=== PATIENT | male | born 1985 ===

== ENCOUNTER 2021-04-15 13:20 | Emergency (ER) | payer BC ==
[~2021-04-15] VITALS: Ht 177.8 cm; Wt 92.3 kg
[2021-04-15 13:30] VITALS: TEMP 98.1
[2021-04-15 14:14] LABS: COLLECTION METHOD CLEAN CATCH
[2021-04-15 14:29] LABS: MUCOUS Present /lpf; PH 8 (5-8); SQUAMOUS EPITHELIAL None Seen /hpf; URINE APPEARANCE Clear; URINE BACTERIA None Seen /hpf; URINE BILIRUBIN Negative (NEGATIVE); URINE BLOOD Negative (NEGATIVE); URINE COLOR Yellow; URINE GLUCOSE Negative (NEGATIVE); URINE KETONE Negative (NEGATIVE); URINE LEUKOCYTE ESTERASE Negative (NEGATIVE); URINE NITRATE Negative (NEGATIVE); URINE PROTEIN(semi-quant) Negative (NEGATIVE); URINE RBC 0-2 /hpf; URINE UROBILINOGEN Negative (NEGATIVE)
[2021-04-15 14:34] LABS: BASO # 0.1 K/mm3 (0.0-0.2); BASO % 1.2 % (0.0-2.0); EOS # 0.1 K/mm3 (0.0-0.7); EOS % 1.8 % (0-4.0); GRAN # 1.7 K/mm3 (1.4-6.5); GRAN % 33.2 % (42.2-75.2); HEMATOCRIT 43.5 % (42.0-52.0); HEMOGLOBIN 14.4 g/dl (13.5-18.0); LYMPH # 2.9 K/mm3 (1.2-3.4); LYMPH % 56.5 % (20.0-51.0); MEAN CELL VOLUME 89 fl (80.0-100.0); MEAN CORPUSCULAR HEMOGLOBIN 29 pg (27.0-31.0); MEAN CORPUSCULAR HGB CONC 33 g/dl (33.0-37.0); MONO # 0.3 K/mm3 (0.1-0.6); MONO % 6.7 % (1.7-9.3); PLATELET COUNT 210 K/mm3 (130-400); RED BLOOD COUNT 4.91 M/mm3 (4.20-5.60); REDCELL DISTRIBUTION WIDTH-CV 12.6 % (11.5-14.5)
[2021-04-15 14:39] LABS: ALBUMIN 4.1 gm/dL (3.5-5.0); BILIRUBIN,TOTAL 0.8 mg/dL (0.2-1.2); CALCIUM 9.7 mg/dL (8.4-10.2); CREATININE, serum 0.75 mg/dL (0.72-1.25); POTASSIUM 3.9 mmol/L (3.5-4.5)
[2021-04-15] MEDS ORDERED: PEPCID 20MG TAB20 MG PO (15:19)
[2021-04-15 15:47] VITALS: BP 116/70; PULSE 56
== END 2021-04-15 15:48 | disposition home or self-care (01) ==
LOC: COL.ER 13:20
PROVIDERS: Emergency Medicine
DX: R10.13 Epigastric pain (principal); E66.9 Obesity, unspecified; Z98.84 Bariatric surgery status; Z68.29 Body mass index [BMI] 29.0-29.9, adult

== ENCOUNTER → 2021-05-06 | Outpatient (CLI) | payer BC ==
[~2021-05-06] MED LIST: ONE-A-DAY ESSE1 EACH PO; PEPCID 20MG TAB20 MG PO
== END ==
LOC: COL.RAD 05-05 08:00
DX: Z98.890 Other specified postprocedural states (principal)

== ENCOUNTER → 2021-05-08 | Outpatient (CLI) | payer BC | LOC: COL.RAD 06:38 | DX: K76.0 Fatty (change of) liver, not elsewhere classified (principal) ==

== ENCOUNTER 2021-05-13 09:06 | Day surgery (SDC) | payer BC ==
[~2021-05-13] VITALS: Ht 177.8 cm; Wt 92.8 kg
[~2021-05-13 09:06] MED LIST changes: -ONE-A-DAY ESSE1 EACH PO
--- NOTE | 2021-05-13 09:20 | NUR ---
Patient ambulated back to bay #2 without difficulty, after obtaining weight and temperature. Vitals are WNL. HX and medications reviewed. Consent reviewed and patient signed, after verifying first & last name + . Warm blanket provided. Non-slip socks are worn. Patient verbalized understanding of procedure. Call kapoor is within reach. Will continue to monitor. Privacy provided.
[2021-05-13] MEDS ORDERED: ONE-A-DAY ESSE1 EACH PO (09:27)
[2021-05-13 09:45] VITALS: BP 112/75; PULSE 75; TEMP 97.8
[2021-05-13 11:35] VITALS: BP 108/66; PULSE 58; TEMP 97.6
--- NOTE | 2021-05-13 11:35 | NUR ---
PATIENT BROUGHT BACK TO [facility] VIA CART. AMBULATED TO CHAIR WITHOUT DIFFICULTY. PLACED ON MONITORS, VITAL SIGNS STABLE. PATIENT IS AWAKE ORIENTED. DENIES PAIN OR NAUSEA. IV INFUSING. TO PICK PATIENT UP. ZEESHAN CHAIREZ AT BEDSIDE FOR REPORT. PATIENT REQUESTS COFFEE AT THIS TIME. WILL CONTINUE TO MONITOR. CALL [place] WITHIN REACH. 1150- PATIENT TOLERATING COFFEE WITHOUT DIFFICULTY. VITAL SIGNS STABLE. DR. ALFRED AT BEDSIDE TO DISCUSS RESULTS. 1205- PATIENT STATES HE FEELS READY TO GO HOME AT THIS TIME. DISCHARGE INSTRUCTIONS REVIEWED WITH PATIENT. IV REMOVED, INTACT. PATIENT TO GET DRESSED AT THIS TIME. 1215- [facility] AT FRONT DOOR TO DRIVE PATIENT HOME. ALL BELONGINGS IN HAND.
[2021-05-13 11:50] VITALS: BP 107/71; PULSE 62
[2021-05-13 12:05] VITALS: BP 106/84; PULSE 58
== END 2021-05-13 12:15 | disposition home or self-care (01) ==
LOC: SDCO 09:06
DX: Z98.84 Bariatric surgery status (principal); F41.9 Anxiety disorder, unspecified; G47.33 Obstructive sleep apnea (adult) (pediatric)
CPT/HCPCS: J2704; J3010; J7030